=== PATIENT | male | born 1945 | race Caucasian/White ===

== ENCOUNTER 2024-05-30 09:05 | Outpatient (CLI) | payer MEDICARE | END 2024-05-30 09:06 | disposition home or self-care (01) | LOC: CSHWCC 09:05 | PROVIDERS: ATTEND Nurse Practitioner Family | DX: N30.40 Irradiation cystitis without hematuria (principal) ==

== ENCOUNTER 2024-08-01 08:39 | Outpatient (CLI) | payer MEDICARE | END 2024-08-01 08:40 | disposition home or self-care (01) | LOC: CSHWCC 08:39 | PROVIDERS: ATTEND Nurse Practitioner Family | DX: N30.40 Irradiation cystitis without hematuria (principal) | CPT/HCPCS: G0277 ==

== ENCOUNTER 2024-08-02 08:25 | Outpatient (CLI) | payer MEDICARE | END 2024-08-02 08:26 | disposition home or self-care (01) | LOC: CSHWCC 08:25 | PROVIDERS: ATTEND Nurse Practitioner Family | DX: N30.40 Irradiation cystitis without hematuria (principal) | CPT/HCPCS: G0277 ==